=== PATIENT | male | born 1970 | race Caucasian/White ===

== ENCOUNTER → 2022-02-09 | Outpatient (CLI) | payer OTHER ==
--- NOTE | 2022-02-09 12:07 | US ---
EXAMINATION TYPE: US liver DATE OF EXAM: 02/09/2022 COMPARISON: NONE CLINICAL HISTORY: R76.8 ABNORMAL IMMUNOLOGICAL FINDINGS IN SERUM. Abnormal labs. Patient states he h as Hep C antibodies. TECHNIQUE: Multiple sonographic images of the right upper quadrant are obtained. FINDINGS: EXAM MEASUREMENTS: Liver Length: 18.2 cm Gallbladder Wall: 0.2 cm CBD: 0.7 cm Right Kidney: 11.9 x 5.3 x 4.6 cm Pancreas: Obscured by bowel gas Liver: wnl Gallbladder: upper limits of normal in size Evidence for sonographic Paulino's sign: neg CBD: minimally dilated Right Kidney: No hydronephrosis or masses seen Suboptimal evaluation of pancreas on initial images due to overlying bowel gas. Visualized liver is s lightly heterogeneous in appearance without focal mass or ductal dilatation. Minimal extrahepatic ellis iary dilatation. Gallbladder is seen without shadowing mobile gallstones. Distended margins noted. No right-sided hydronephrosis. IMPRESSION: Heterogeneous hyperechoic appearance the liver consistent with mild diffuse fatty infiltr ation and/or underlying hepatocellular disease. Suboptimal evaluation of pancreas. Minimal extrahepat ic biliary dilatation. Consider follow-up CT and/or MRI imaging.
== END | disposition home or self-care (01) ==
LOC: RADUSWWP 07:11
PROVIDERS: ATTEND Family Medicine
DX: K76.89 Other specified diseases of liver (principal)
CPT/HCPCS: 76705

== ENCOUNTER → 2022-09-30 | Outpatient (CLI) | payer BC ==
--- NOTE | 2022-09-30 14:23 | US ---
EXAMINATION TYPE: US venous doppler duplex LE DATE OF EXAM: 09/30/2022 1:38 PM COMPARISON: NONE CLINICAL INDICATION: Male, 51 years old with history of R60.0; pain SIDE PERFORMED: Bilateral TECHNIQUE: The lower extremity deep venous system is examined utilizing real time linear array sonog levi with graded compression, doppler sonography and color-flow sonography. VESSELS IMAGED: Common Femoral Vein Deep Femoral Vein Greater Saphenous Vein * Femoral Vein Popliteal Vein Small Saphenous Vein * Proximal Calf Veins (* superficial vessels) Right Leg: Negative for DVT Left Leg: Negative for DVT IMPRESSION: Grayscale, color doppler, spectral doppler imaging performed of the deep veins of the lo wer extremities. There is normal flow, compressibility, vascular waveforms.
== END | disposition home or self-care (01) ==
LOC: RADUSWWP 13:09
PROVIDERS: ATTEND Family Medicine
DX: R60.0 Localized edema (principal)
CPT/HCPCS: 93970

== ENCOUNTER → 2023-02-09 | Outpatient (CLI) | payer BC ==
--- NOTE | 2023-02-09 08:32 | US ---
EXAMINATION TYPE: US extremity nonvasculr ltd RT DATE OF EXAM: 02/09/2023 COMPARISON: NONE CLINICAL INDICATION: Male, 52 years old with history of M25.561 PAIN SWELLING KNEE RIGHT; Swelling ri ght knee. Patient states he has a history of cysts on the body. TECHNIQUE: Multiple sonographic images taken. FINDINGS: Posterior knee and patients area of concern at medial right knee scanned. SVT visualized at area of concern, noncompressible. No abnormality seen at posterior knee. IMPRESSION: Posterior knee somewhat tubular structure which is hypoechoic without flow correlate for varicose vein/superior venous thrombosis.
== END | disposition home or self-care (01) ==
LOC: RADUSWWP 07:43
PROVIDERS: ATTEND Family Medicine
DX: M25.561 Pain in right knee (principal)

== ENCOUNTER → 2023-04-28 | Day surgery (SDC) | payer BC ==
[~2023-04-28] MED LIST: LACTATED RINGERS 1,000 ML IV SCH; LIDOCAINE 1% (10MG/ML) FOR IV START INTRADERMA PRN; LIDOCAINE 1% INJ 10MG/ML (20 ML MDV) ONE; PROPOFOL 10 MG/ML 20 ML VIAL IV ONE
[2023-04-28 14:29] LABS: Glucose,Whole Blood 80 mg/dL (70-110)
[2023-04-28 14:34] VITALS: PULSE 75; TEMP 98.1
--- NOTE | 2023-04-28 16:13 | P.PCN ---
Date of Procedure: 04/28/23 Procedure(s) Performed: BRIEF HISTORY: Patient is a 52-year-old pleasant male scheduled for an elective colonoscopy as a part of screening for colon cancer and family history of colon cancer. His paternal grandfather was diagnosed with colon cancer at 70 and maternal aunt at age 50. PROCEDURE PERFORMED: Colonoscopy. PREOPERATIVE DIAGNOSIS:For colon cancer and family history of colon cancer]. IV sedation per Anesthesia. PROCEDURE: After informed consent was obtained, the patient, was brought into the endoscopy unit. IV sedation was administered by Anesthesia under continuous monitoring. Digital rectal examination was normal. Initially the Olympus CF-160 flexible video colonoscope was then inserted in the rectum, gradually advanced into the cecum without any difficulty. Careful examination was performed as the scope was gradually being withdrawn. Ileocecal valve and the appendiceal orifice were visualized and appeared normal. Prep was fair.. Mucosa of the cecum, ascending colon, transverse colon, descending colon, sigmoid colon, and rectum appeared normal. Retroflexion was performed in the rectum and no lesions were seen. The patient tolerated the procedure well. IMPRESSION: Normal-appearing colon from rectum to cecum with no evidence of colorectal neoplasia. . RECOMMENDATIONS: Findings of this examination were discussed with the patient as well as the his family. He was advised to have a repeat screening colonoscopy every 5 years because of the family history of colon cancer..
[2023-04-28 16:31] VITALS: BP 135/84; RESP 16
== END ==
LOC: ORWHC2ENDO 12:56
PROVIDERS: ATTEND Internal Medicine Gastroenterology
DX: Z12.11 Encounter for screening for malignant neoplasm of colon (principal); J44.9 Chronic obstructive pulmonary disease, unspecified; G47.00 Insomnia, unspecified; M19.90 Unspecified osteoarthritis, unspecified site; F41.9 Anxiety disorder, unspecified; F17.200 Nicotine dependence, unspecified, uncomplicated; F12.90 Cannabis use, unspecified, uncomplicated; F43.10 Post-traumatic stress disorder, unspecified; Z80.0 Family history of malignant neoplasm of digestive organs; Z88.2 Allergy status to sulfonamides; Z85.118 Personal history of other malignant neoplasm of bronchus and lung; Z85.030 Personal history of malignant carcinoid tumor of large intestine; Z79.51 Long term (current) use of inhaled steroids; Z79.899 Other long term (current) drug therapy
CPT/HCPCS: 45378; J2001; J2704